=== PATIENT | female | born 1955 | race Caucasian/White ===

== ENCOUNTER 2016-11-02 08:07 | Inpatient (IN) | payer MEDICARE, MEDICAID ==
[~2016-11-02] VITALS: Ht 160 cm; Wt 59.1 kg
[2016-11-02] MEDS ORDERED: SODIUM CHLORIDE 0.9% 1,000 ML IV ONE (08:37)
[2016-11-02] MEDS ORDERED: LORazepam 2 MG/ML, 1ML ONE (08:57)
[2016-11-02] MEDS ORDERED: LORazepam 2 MG/ML, 1ML IVPush ONE (09:00)
[2016-11-02 09:37] LABS: BLOOD UREA NITROGEN 13 mg/dL (7-18)
[2016-11-02 09:43] LABS: ASPARTATE AMINO TRANSFERASE 17 U/L (15-37); IS PT STATUS REG ER OR PRE ER? YES
[2016-11-02] MEDS ORDERED: SIMV20TA3 PO (09:44)
[2016-11-02] MEDS ORDERED: OMEP10CA4 PO (09:45)
[2016-11-02] MEDS ORDERED: PRED1TAB PO (09:46)
[2016-11-02] MEDS ORDERED: CHOL2000 PO (09:46)
[2016-11-02] MEDS ORDERED: ROPI0.2537 PO (09:47)
[2016-11-02] MEDS ORDERED: MYCO360T PO (09:47)
[2016-11-02] MEDS ORDERED: TACR1CAP4 PO (09:48)
[2016-11-02] MEDS ORDERED: SODIUM CHLORIDE 0.9% 1,000ML IVBOLUS ONE (10:00)
[2016-11-02] MEDS ORDERED: SODIUM CHLORIDE FLUSH 10ML SYR IVF PRN (11:30)
[2016-11-02] MEDS ORDERED: TEMAZEPAM 15 MG CAPSULE PO PRN (13:30)
[2016-11-02] MEDS ORDERED: ONDANSETRON 2MG/ML, 2ML IVPush PRN (13:30)
[2016-11-02] MEDS: TACROLIMUS 1 MG CAPSULE PO SCH (13:30)
[2016-11-02] MEDS ORDERED: ACETAMINOPHEN 325 MG TABLET PO PRN (13:30)
[2016-11-02] MEDS ORDERED: NITROGLYCERIN 0.4 MG BOTTLE (25 TABS) SL PRN (13:30)
[2016-11-02] MEDS ORDERED: DOCUSATE 100 MG CAPSULE PO PRN (13:30)
[2016-11-02] MEDS ORDERED: LABETALOL 5MG/ML, 20ML IVPush PRN (13:30)
[2016-11-02 13:39] VITALS: BP 145/80
[2016-11-02] MEDS: HYDROcodone/APAP 5/325 TABLET PO PRN ×2 (14:51→19:23)
[2016-11-02] MEDS: ENOXAPARIN 40 MG/0.4 ML SQ SCH (14:52)
[2016-11-02 15:17] LABS: IS PT STATUS REG ER OR PRE ER? NO
[2016-11-02] MEDS: LORazepam 1MG TABLET PO PRN (19:23)
[2016-11-02 19:33] VITALS: BP 120/74
[2016-11-02] MEDS: SIMVASTATIN 20 MG TABLET PO SCH (21:04)
[2016-11-02 21:09] LABS: IS PT STATUS REG ER OR PRE ER? NO
[2016-11-03 00:43] VITALS: BP 125/75
[2016-11-03] MEDS: HYDROcodone/APAP 5/325 TABLET PO PRN ×5 (01:48→20:17)
[2016-11-03] MEDS: TACROLIMUS 1 MG CAPSULE PO SCH ×2 (01:49→14:29)
[2016-11-03 06:42] LABS: ASPARTATE AMINO TRANSFERASE 13 U/L (15-37); BLOOD UREA NITROGEN 14 mg/dL (7-18)
[2016-11-03] MEDS: OMEPRAZOLE 10 MG CAPSULE.DR PO SCH (08:46)
[2016-11-03 08:55] VITALS: BP 124/78
[2016-11-03] MEDS ORDERED: FENTANYL PF 100 MCG/2ML ONE (12:00)
[2016-11-03] MEDS ORDERED: MIDAZOLAM 1 MG/ML, 5ML ONE (12:00)
[2016-11-03] MEDS ORDERED: ISOPROTERENOL 0.2MG/ML, 5ML ONE (12:00)
[2016-11-03] MEDS ORDERED: LIDOCAINE 2%, 20ML ONE (12:16)
[2016-11-03] MEDS: LORazepam 1MG TABLET PO PRN (14:28)
[2016-11-03] MEDS: ENOXAPARIN 40 MG/0.4 ML SQ SCH (14:29)
[2016-11-03 14:50] VITALS: BP 148/84
[2016-11-03 19:19] VITALS: BP 116/74
[2016-11-03] MEDS: SIMVASTATIN 20 MG TABLET PO SCH (20:17)
[2016-11-04 01:41] VITALS: BP 104/67
[2016-11-04] MEDS: TACROLIMUS 1 MG CAPSULE PO SCH ×2 (02:00→15:23)
[2016-11-04] MEDS: HYDROcodone/APAP 5/325 TABLET PO PRN ×2 (02:00→13:24)
[2016-11-04 05:19] LABS: BLOOD UREA NITROGEN 21 mg/dL (7-18)
[2016-11-04 08:28] VITALS: BP 122/82
[2016-11-04] MEDS: OMEPRAZOLE 10 MG CAPSULE.DR PO SCH (08:31)
[2016-11-04] MEDS ORDERED: ZONISAMIDE 50 MG CAPSULE PO SCH (09:30)
[2016-11-04 13:59] VITALS: BP 116/78
[2016-11-04] MEDS: ENOXAPARIN 40 MG/0.4 ML SQ SCH (14:00)
[2016-11-04] MEDS ORDERED: METO25TA91 PO (16:42)
[2016-11-04] MEDS ORDERED: CLON-365 PO (16:42)
[2016-11-04] MEDS ORDERED: ZONI50CA2 PO (16:42)
[2016-11-05] MEDS ORDERED: METOPROLOL SUCCINATE 25 MG TAB.ER.24H PO SCH (06:00)
== END 2016-11-04 18:24 | disposition home or self-care (01) | DRG 101 ==
LOC: ED 08:46 → EDIP 11:27 → 5SO 13:16
PROVIDERS: ADMIT Hospitalist; ATTEND Hospitalist
PROC: 4A12X4Z Monitoring of Cardiac Electrical Activity, External Approach (ICD-10-PCS; principal; 2016-11-03)
DX: G40.209 Localization-related (focal) (partial) symptomatic epilepsy and epileptic syndromes with complex partial seizures, not intractable, without status epilepticus (principal); I47.1 Supraventricular tachycardia; G91.9 Hydrocephalus, unspecified; I20.0 Unstable angina; Z94.0 Kidney transplant status; E87.6 Hypokalemia; M79.7 Fibromyalgia; N18.9 Chronic kidney disease, unspecified; G40.409 Other generalized epilepsy and epileptic syndromes, not intractable, without status epilepticus; D72.829 Elevated white blood cell count, unspecified; E78.5 Hyperlipidemia, unspecified; E86.0 Dehydration; G89.4 Chronic pain syndrome; I12.9 Hypertensive chronic kidney disease with stage 1 through stage 4 chronic kidney disease, or unspecified chronic kidney disease; I35.1 Nonrheumatic aortic (valve) insufficiency; I48.91 Unspecified atrial fibrillation; K21.9 Gastro-esophageal reflux disease without esophagitis; Z79.891 Long term (current) use of opiate analgesic; Z87.891 Personal history of nicotine dependence; Z99.2 Dependence on renal dialysis; Z88.5 Allergy status to narcotic agent; Z88.8 Allergy status to other drugs, medicaments and biological substances
CPT/HCPCS: 36415; 70450; 70551; 71010; 80048; 80053; 83690; 83735; 84100; 84484; 85025; 85379; 85610; 85730; 93005; 93306; 93620; 93621; 93623; 95819; 96361; 96374; 99156; 99157; C1894; J1650; J2250; J3010; J3490; J7507; J7512; J7518; C1730; C2630; J2060; J7030